=== PATIENT | male | born 2000 | race Caucasian/White ===

== ENCOUNTER 2024-10-06 18:01 | Emergency (ER) | payer OTHER, SELFPAY ==
[2024-10-06 18:03] VITALS: BP 148/86; PULSE 98; RESP 16; TEMP 36.3; O2SAT 99
--- NOTE | 2024-10-06 19:29 | ED.WOUNDLAC ---
HPI - Wound/Laceration General Chief Complaint: Wound/Laceration Stated Complaint: Lac Time Seen by Provider: 10/06/24 18:56 Source: patient Mode of arrival: ambulatory Limitations: no limitations History of Present Illness HPI narrative: This is a 24-year-old male who presents to the ED for chief complaint of laceration injury to the right hand. Patient reports that he was punching a punching bag game when his hand went through and accidentally caught a corner of the hardware. States it feels like the skin was blood but he did not punch the machine very hard. Denies hand pain. Denies any further complaint Related Data Allergies Allergy/AdvReac Type Severity Reaction Status Date / Time No Known Allergies Allergy Mild Verified 10/06/24 18:02 Review of Systems Review of Systems: All systems as dictated in HPI Exam Narrative: GENERAL: Well-appearing, well-nourished, and in no acute distress. HEAD: Normocephalic, atraumatic. EYES: PERRLA and EOMI. ENT: Nares clear, no rhinorrhea or epistaxis. Mucous membranes moist. Oropharynx without tonsillar hypertrophy exudate or other lesions. NECK: Supple. No adenopathy or masses. CHEST: No respiratory distress. Clear to auscultation. No wheezes rales or rhonchi HEART: Regular rate and rhythm. No murmur heard. Normal peripheral pulses. ABDOMEN: Soft, nontender, nondistended, normal active bowel sounds. MSK: Normal range of motion. No edema. SKIN: 2 cm laceration to the dorsum of the right hand in between 3rd and 4th digit NEURO: Alert and oriented x4. No focal deficits. PSYCH: Normal mood and affect. Course Vital Signs Vital signs: Vital Signs Temperature 97.4 F L 10/06/24 18:03 Pulse Rate 98 10/06/24 18:03 Respiratory Rate 16 10/06/24 18:03 Blood Pressure 148/86 H 10/06/24 18:03 Pulse Oximetry 99 10/06/24 18:03 Oxygen Delivery Room Air 10/06/24 18:03 Temperature 97.4 F L 10/06/24 18:03 Pulse Rate 98 10/06/24 18:03 Respiratory Rate 16 10/06/24 18:03 Blood Pressure 148/86 H 10/06/24 18:03 Pulse Oximetry 99 10/06/24 18:03 Oxygen Delivery Room Air 10/06/24 18:03 Procedures Laceration Laceration 1: Date: 10/06/24 Time: 23:28 Site: hand Side (If applicable): right Size (cm): 2 Description: linear Depth: simple, single layer Local Anesthetic: lidocaine 1% and with epi Amount of anesthesia used (mL): 2 Pre-repair: wound explored, irrigated extensively and deep structures intact ====== Skin Level ====== Skin layer closed with: nylon Size (cm): 5-0 Number of sutures: 4 Technique: simple, interrupted ====== Subcutaneous Layer ====== ====== Muscle Layer ====== ====== Tendon Layer ====== MDM - Wound/Laceration MDM Narrative Medical decision making narrative: This is a 24-year-old male who presents to the ED for chief complaint of laceration injury to the right hand. Vitals are normal. Exam shows 2 cm laceration in between 3rd and 4th digit. There is no tenderness or bruising or deformity on the exam. No indication for imaging today. The wound was well cleansed and irrigated here. Closed primarily with 5-0 Ethilon sutures. Tdap updated. Laceration instructions given. Patient will be discharged in stable condition. Supportive measures discussed and return precautions given. Patient is understanding and agreeable with plan for discharge with PCP follow-up. Differential Diagnosis Differential diagnosis: Likely laceration, abrasion and avulsion of skin Discharge Plan Discharge Clinical Impression: Laceration Patient Disposition: Home, Self-Care Condition: Stable Instructions: Antibiotic Form, Laceration (ED) Additional Instructions: Keep wound clean and dry. Do not soak, take baths, or swim until wound is completely healed. If any signs of infection such as redness, swelling, increasing pain, drainage of purulent discharge, streaks up your extremity develop, seek medical attention immediately. Followup with your primary care provider in [5-7] days for suture removal. Patient Language: Kyr[place] Follow-up/Referrals: UNKNOWN,DOCTOR [Primary Care Provider] - Stand Alone Forms: Work/School Release IP Time of Disposition: 20:15
[2024-10-06] MEDS: TETANUS,DIPHTHERIA,AC PERTUSSIS ADULT (0.5 ML) BOOSTRIX IM (19:39)
== END 2024-10-06 20:40 | disposition home or self-care (01) ==
PROVIDERS: Emergency Provider Physician Assistant
DX: S61.411A Laceration without foreign body of right hand, initial encounter (principal); Z23 Encounter for immunization; W26.8XXA Contact with other sharp object(s), not elsewhere classified, initial encounter
CPT/HCPCS: 12001; 90471; 90715; 99282